=== PATIENT | female | born 1965 | race Caucasian/White ===

== ENCOUNTER 2018-04-11 15:18 | Emergency (ER) | payer OTHER ==
[~2018-04-11] VITALS: Ht 149.9 cm; Wt 75.3 kg
[2018-04-11] MEDS ORDERED: ALLEGRA-D 12 H1 EACH (15:28)
== END 2018-04-11 21:58 | disposition designated cancer center or children's hospital (05) ==
LOC: ER 15:18
DX: I61.8 Other nontraumatic intracerebral hemorrhage (principal); R41.82 Altered mental status, unspecified